=== PATIENT | male | born 1995 | race Caucasian/White ===

== ENCOUNTER 2020-11-28 11:13 | Emergency (ER) | payer OTHER ==
--- NOTE | 2020-11-28 11:40 | EDM.PDOC ---
ED HPI GENERAL MEDICAL PROBLEM - General Chief Complaint: Lower Extremity Injury/Pain Stated Complaint: RIGHT KNEE PAIN Time Seen by Provider: 11/28/20 11:30 Source of Information: Reports: Patient History Limitations: Reports: No Limitations - History of Present Illness INITIAL COMMENTS - FREE TEXT/NARRATIVE: Patient states he was at a concert in [place] on Friday when he went into the [facility] and do not know what exactly happened but he came down on his right knee fell to the ground had to be carried out but was able to get up on it just a few minutes later. He states he was hurting but he drank a few more beers and was able to shake it off keep guardian he states Friday it was swollen and got little worse he returned home yesterday and wanted to come to the ER and get it checked out. He states he has been able to bear a little bit of weight on it but using crutches mostly he rates pain about a 6 out of 10 throbbing. He has been taking some [id number] ibuprofen occasionally using crutches and a knee brace. He has no other complaints at this time he denies any numbness tingling or loss of sensation Duration: Day(s): Severity: Moderate Improves with: Reports: Medication, Rest Worsens with: Reports: Movement Associated Symptoms: Reports: No Other Symptoms Right Knee Pain Score (Numeric/FACES): 7 - Related Data Allergies Allergy/AdvReac Type Severity Reaction Status Date / Time No Known Allergies Allergy Verified 11/28/20 11:27 Home Meds: Home Meds . [No Known Home Meds] 11/28/20 [History] Past Medical History - Past Health History Medical/Surgical History: Denies Medical/Surgical History Social & Family History - Tobacco Use Tobacco Use Status *Q: Never Tobacco User Review of Systems - Review of Systems Review Of Systems: See Below Constitutional: Reports: No Symptoms Respiratory: Reports: No Symptoms Cardiovascular: Reports: No Symptoms GI/Abdominal: Reports: No Symptoms Musculoskeletal: Reports: Joint Pain Skin: Reports: No Symptoms Neurological: Reports: No Symptoms Psychiatric: Reports: No Symptoms ED EXAM, GENERAL - Physical Exam Exam: See Below Exam Limited By: No Limitations General Appearance: Alert, WD/WN, No Apparent Distress Back Exam: Normal Inspection, Full Range of Motion Extremities: Normal Inspection, Normal Range of Motion, No Pedal Edema, Normal Capillary Refill, Other (Exam to the right lower extremity patient has positive dorsalis pedis posterior tibialis pulses full range of motion with the foot and ankle he has normal flexion and extension of the knee there is noted mild ecchymosis and edema to the medial aspect of the knee with positive tenderness palpation ov). No: Non-Tender Course - Vital Signs Text/Narrative:: Patient was given instruction to continue with the rice treatment is much as possible for the next 3 days continue using his knee brace and crutches as needed but recommended to bear weight as much as possible I explained to the patient that he needed to keep ice to the area is much as tolerated 30 minutes on 30 minutes off for the next 3 days he may take [id number] Tylenol 1-2 tabs every 4-6 hours as needed for the next 3 to 4 days he may also use ibuprofen 600 mg every 8 hours as needed for the next 3 days He needs to follow-up with a primary care provider for reevaluation and possible MRI Last Recorded V/S: Last Vital Signs Temp 36.7 C 11/28/20 11:18 Pulse 89 11/28/20 11:18 Resp 18 11/28/20 11:18 BP 141/66 H 11/28/20 11:18 Pulse Ox 97 11/28/20 11:18 Departure - Departure Time of Disposition: 11:40 Disposition: Home, Self-Care 01 Condition: Good Clinical Impression: Knee pain, right - Discharge Information *PRESCRIPTION DRUG MONITORING PROGRAM REVIEWED*: No *COPY OF PRESCRIPTION DRUG MONITORING REPORT IN PATIENT LUCHO: No Sepsis Event Note (ED) - Evaluation Sepsis Screening Result: No Definite Risk - Focused Exam Vital Signs: Vital Signs Temp Pulse Resp BP Pulse Ox 11/28/20 11:18 36.7 C 89 18 141/66 H 97 - Problem List & Annotations (1) Knee pain, right SNOMED Code(s): 9575749038 Code(s): M25.561 - PAIN IN RIGHT KNEE Status: Acute
== END 2020-11-28 11:49 | disposition home or self-care (01) ==
LOC: VM.ED 11:13
DX: M25.561 Pain in right knee (principal)
CPT/HCPCS: 99283

== ENCOUNTER 2023-05-23 14:30 | Emergency (ER) | payer BC, OTHER ==
[2023-05-23 15:08] LABS: BASOPHILS ABSOLUTE AUTO 0.1 x10^3/uL (0.0-0.2); BASOPHILS PERCENT AUTO 0.8 % (0.2-1.2); EOSINOPHILS ABSOLUTE AUTO 0.3 x10^3/uL (0.0-0.5); EOSINOPHILS PERCENT AUTO 4.9 % (0.0-4.0); HEMATOCRIT 42.9 % (40.0-52.0); HEMOGLOBIN 15.7 g/dL (14.0-18.0); IMMATURE GRAN ABSOLUTE AUTO 0.01 x10^3/uL (0.00-0.07); LYMPHOCYTES ABSOLUTE AUTO 1.4 x10^3/uL (1.0-4.8); LYMPHOCYTES PERCENT AUTO 23.4 % (25.0-50.0); MEAN CORPUSCULAR HEMOGLOBIN 30.3 pg (26.0-32.0); MEAN CORPUSCULAR HGB CONC 36.6 g/dL (32.0-36.0); MEAN CORPUSCULAR VOLUME 82.7 fL (78.0-93.0); MONOCYTES ABSOLUTE AUTO 0.4 x10^3/uL (0.0-0.8); MONOCYTES PERCENT AUTO 7.2 % (2.0-11.0); NEUTROPHILS ABSOLUTE AUTO 3.9 x10^3/uL (1.8-7.7); NEUTROPHILS PERCENT AUTO 63.5 % (50.0-80.0); PLATELET COUNT,PLT 233 x10^3/uL (130-400); RED BLOOD CELL COUNT 5.19 x10^6/uL (4.5-6.0); WHITE BLOOD CELL COUNT,WBC 6.1 x10^3/uL (4.0-10.0)
[2023-05-23 15:27] LABS: A/G RATIO 1.41; ALANINE AMINOTRANSFERASE,ALT 41 U/L (16-63); ALBUMIN 4.5 g/dL (3.4-5.0); ALKALINE PHOSPHATASE 80 U/L (46-116); ANION GAP 15.6 mmol/L (5-15); ASPARTATE AMNIOTRANSFERASE,AST 19 U/L (15-37); BILIRUBIN TOTAL 0.6 mg/dL (0.2-1.0); BLOOD UREA NITROGEN,BUN 17 mg/dL (7-18); C-REACTIVE PROTEIN < 0.50 mg/dL (<=0.50); CALCIUM 9.6 mg/dL (8.5-10.1); CARBON DIOXIDE,CO2 26 mmol/L (21-32); CHLORIDE,CL 104 mmol/L (98-107); CREATININE 0.9 mg/dL (0.70-1.30); EST CRCL DRUG DOSING (CG) 116.29 mL/min; ESTIMATED GFR 121 mL/min (>=60); GLUCOSE RANDOM 116 mg/dL (70-99); POTASSIUM,K 3.6 mmol/L (3.5-5.1); PROTEIN TOTAL,TP 7.7 g/dL (6.4-8.2); SODIUM,NA 142 mmol/L (136-145)
[2023-05-23 15:45] LABS: CORONAVIRUS COVID-19 NAA NEGATIVE (NEGATIVE); INFLUENZA A NAA NEGATIVE (NEGATIVE); INFLUENZA B NAA NEGATIVE (NEGATIVE); RESPIRATORY SYNCYTIAL VIR NAA NEGATIVE (NEGATIVE)
== END 2023-05-23 16:15 | disposition home or self-care (01) ==
LOC: VM.ED 14:30
DX: R07.9 Chest pain, unspecified (principal); R06.02 Shortness of breath; Z20.822 Contact with and (suspected) exposure to COVID-19; Z87.891 Personal history of nicotine dependence
CPT/HCPCS: 0241U; 36415; 71046; 80053; 84484; 85025; 86140; 93005; 99285